=== PATIENT | female | born 2000 | race Caucasian/White ===

== ENCOUNTER 2019-09-22 06:08 | Day surgery (SDC) | payer OTHER ==
[2019-09-20 10:38] VITALS: BMI 32.9
[2019-09-22] MEDS ORDERED: PROPOFOL 20 ML ONE (07:12)
[2019-09-22] MEDS ORDERED: MIDAZOLAM HCL 2 MG/2 ML SINGLE DOSE VIAL ONE (07:12)
[2019-09-22] MEDS ORDERED: LIDOCAINE HCL 2% (20ML MULTI-DOSE VIAL) ONE (07:22)
[2019-09-22] MEDS ORDERED: BUPIVACAINE HCL/PF 0.25% (2.5MG/ML) 10 ML VIAL ONE (07:23)
[2019-09-22] MEDS ORDERED: LIDOCAINE HCL/PF 2% SDV 5ML VIAL ONE (07:40)
[2019-09-22] MEDS ORDERED: ceFAZolin SODIUM 1 GM VIAL ONE (07:48)
[2019-09-22] MEDS ORDERED: ONDANSETRON 4 MG/2 ML VIAL ONE (07:55)
[2019-09-22] MEDS ORDERED: KETOROLAC TROMETHAMINE 30 MG/1 ML VIAL ONE (07:55)
[2019-09-22] MEDS ORDERED: DEXAMETHASONE SOD PHOSPHATE 4 MG/1 ML VIAL ONE (07:55)
[2019-09-22] MEDS ORDERED: GUM MASTIC/STORAX/MSAL/ALCOHOL 1 DRP DROPSBTL MC ONE (08:06)
[2019-09-22 08:37] VITALS: TEMP 98.5
[2019-09-22 09:22] VITALS: BP 115/60; PULSE 72
[2019-09-22] MEDS ORDERED: oxyCODONE HCL 5 MG TABLET PO PRN ×2 (09:29)
[2019-09-22] MEDS ORDERED: ONDANSETRON 4 MG/2 ML VIAL IVPUSH PRN (09:29)
[2019-09-22] MEDS ORDERED: PROMETHAZINE HCL 25 MG/1 ML VIAL IVPUSH PRN (09:29)
--- NOTE | 2019-09-22 10:30 | OP ---
DATE OF OPERATION: 09/22/2019 PREOPERATIVE DIAGNOSIS: Left wrist mass. POSTOPERATIVE DIAGNOSIS: Left wrist mass. OPERATIVE PROCEDURE: Left wrist mass excision. SURGEON: Hernan Patricio MD ANESTHESIA: General. COMPLICATIONS: None. ESTIMATED BLOOD LOSS: Minimal. INDICATION FOR PROCEDURE: The patient is a 19-year-old female with the above finding indicated for operative treatment. Risks, benefits, alternatives were discussed with the patient at length. Proper informed consent was obtained. DESCRIPTION OF PROCEDURE: After preoperative identification of the patient, correct operative site, patient was brought to the operating room and placed supine on the table with all prominences well padded. General anesthesia was given. Intravenous antibiotic was given. Timeout procedure was performed. Left upper extremity was prepped and draped in the usual sterile fashion. A well-padded tourniquet was placed over the sterile prep. Esmarch bandage used to exsanguinate the left upper extremity. Tourniquet was inflated to 250 mmHg. Transverse incision was made over the dorsal wrist. Incision was taken sharply through skin, blunt dissection through subcutaneous tissue to the level of the mass, which was identified as a cystic structure which was multiloculated and emanating from the dorsal radiocarpal joint. The mass was excised in whole, including a small section of the dorsal wrist capsule and sent for pathological evaluation. Wound was irrigated and repaired with 4-0 Vicryl and 4-0 Monocryl sutures. Steri-Strips, sterile dressings were applied. Patient was reversed from anesthesia, brought to the recovery room in stable condition. She tolerated the procedure well. HERNAN PATRICIO M.D. YOSELIN/[id number]
--- NOTE | 2019-09-23 15:35 | PATH ---
Surgical Pathology Report Patient Name: MARILYNN DUMONT Med. Rec. #: [id number] /Age/Gender: 2000 (Age: 19) / F Account: [id number] Location: [facility] Taken: 09/22/2019 Received: 09/22/2019 Reported: 09/23/2019 Physicians: Hernan Mendez M.D. Specimen(s) Received LEFT WRIST MASS Clinical History Left wrist mass Final Diagnosis WRIST, LEFT, MASS, EXCISION: GANGLION CYST. Electronically Signed Marilu Camara M.D. Gross Description Received in formalin labeled "left wrist mass," is a 2.3 x 1.4 x 1.0 cm richey, intact cystic structure containing clear mucinous material. Prevention Coordinator sections are submitted in one cassette. /09/22/2019 saudi/09/22/2019
== END 2019-09-22 09:35 | disposition home or self-care (01) ==
LOC: FASU 06:08
PROVIDERS: ATTEND Orthopaedic Surgery Hand Surgery
PROC: 0LB60ZZ Excision of Left Lower Arm and Wrist Tendon, Open Approach (ICD-10-PCS; principal; 2019-09-22 07:56)
DX: M67.432 Ganglion, left wrist (principal)
CPT/HCPCS: 81025; 88304-TC; 94760